=== PATIENT | female | born 1935 | race Caucasian/White ===

== ENCOUNTER 2016-12-07 09:59 | Day surgery (SDC) | payer MEDICARE, OTHER ==
--- NOTE | ~2016-12-07 | EGD ---
EGD REPORT [facility] [address] [place]. [address] NAME: ALEISHA OLIVEIRA : 37 STATUS : REG [facility]#: [id number] AGE: 80 ADM/REG DATE : 12/07/16 MR#: [id number] REPORT SERV DATE: 12/07/16 DICTATED BY: JOSE NEIL DATE: 12/07/16 REPORT STATUS : Draft TRANSCRIBED BY: [employer] DATE: 12/07/16 [facility] Patient Name: Aleisha Oliveira Date of : 1935 Attending MD: JOSE NEIL MD Procedure Date No Time: 12/07/2016 Procedure: Upper GI endoscopy Indications: Dysphagia, Heartburn, Suspected esophageal reflux, Personal history of peptic ulcer disease Referring MD: AFIA WINKLER Medicines: as per anesthesia Complications: No immediate complications. Procedure: After obtaining informed consent, the endoscope was passed under direct vision. Throughout the procedure, the patient's blood pressure, pulse, and oxygen saturations were monitored continuously. The GIF [id number] was introduced through the mouth, and advanced to the third part of duodenum. The upper GI endoscopy was accomplished without difficulty. The patient tolerated the procedure. Findings: The examined esophagus was normal. The scope was withdrawn. Dilation was performed with a Pantoja dilator with no resistance at 44 Fr. A medium-sized hiatus hernia was present. The examined duodenum was normal. Impression: - Normal esophagus. Dilated. - Hiatus hernia. - Normal examined duodenum. Recommendation: - Follow an antireflux regimen. - Continue present medications. Procedure Code(s): --- Professional --- 80567, Esophagogastroduodenoscopy, flexible, transoral; diagnostic, including collection of specimen(s) by brushing or washing, when performed (separate procedure) 70061, Dilation of esophagus, by unguided sound or bougie, single or multiple passes Diagnosis Code(s): --- Professional --- K44.9, Diaphragmatic hernia without obstruction or gangrene R13.10, Dysphagia, unspecified EGD REPORT [address] [place]. [address] NAME: ALEISHA OLIVEIRA : [birth year] STATUS : REG [facility] PAT#: [id number] AGE: 80 ADM/REG DATE : 12/07/16 MR#: [id number] REPORT SERV DATE: 12/07/16 DICTATED BY: JOSE NEIL. DATE: 12/07/16 REPORT STATUS : Draft TRANSCRIBED BY: [employer] DATE: 12/07/16 R12, Heartburn Z87.11, Personal history of peptic ulcer disease CPT copyright 2013 [employer]. All rights reserved. The codes documented in this report are preliminary and upon front maker lockstitch review may be revised to meet current compliance requirements. JOSE NEIL MD 12/07/2016 1:31 PM This report has been signed electronically. Number of Addenda: 0 Note Initiated On: 12/07/2016 1:12 PM Scope Withdrawal Time 0 hours 0 minutes [address] [place], [place] [address] [address]
[~2016-12-07 09:59] MED LIST: ADVAIR100 INH; ALLERGY INJ; ATEN25 PO; CALCIUM PO; CALTRA600D PO; CLARIT10 PO; CRANBERRY1 TAB OR; CRESTOR10 PO; DCN100 PO; ESTRADIOL; EYE DROP1 OP; FISH OIL PO; FISH-EPA1000 MG PO; FLEX PO; FLONASE NAS; FOSAMAX70 MG PO; KAPIDEX30 MG PO; KAPIDEX60 MG PO; LIBRAX PO; LIQUID TEARS OP; LYRICA100 MG PO; MEDS; METHOC500B PO; MURO1285% OPH; NASACORTAQ NAS; NORCO1 TA1 PO; OMNICEF300 PO; PR25 PO; PREDMILDOP OPH; PRILOSEC40 MG PO; PROBIOTIC PO; PROVHFA INH; RANITIDINE300 MG PO; RESTASIS OPH; SALINE EYE DROPS; SALINE EYE DROPS OPH; SINGULAIR1 PO; SYMBICORT 160/41 INH INH; TESS PO; THERGRANM PO; TYLENOL ALLERGY PO; ULTRAM50 PO; V2 PO; VITAMIN D31000 UNIT PO; XYZAL5 MG PO; ZOL100 PO; ZOL50 PO; ZYRTEC ALLGY10 MG PO; [UNRECOGNIZED DRUG - CODE] PO; [UNRECOGNIZED DRUG - OTHER] PO; [UNRECOGNIZED DRUG - OTHER] PO
== END 2016-12-07 23:59 | disposition home or self-care (01) ==
LOC: DMU 09:59
PROVIDERS: Internal Medicine Gastroenterology
PROC: 0DJ08ZZ Inspection of Upper Intestinal Tract, Via Natural or Artificial Opening Endoscopic (ICD-10-PCS; principal; 2016-12-07 11:00)
PROC: 0D750ZZ Dilation of Esophagus, Open Approach (ICD-10-PCS; 2016-12-07 11:00)
DX: K44.9 Diaphragmatic hernia without obstruction or gangrene (principal); K21.9 Gastro-esophageal reflux disease without esophagitis; I10 Essential (primary) hypertension; J45.909 Unspecified asthma, uncomplicated; F17.210 Nicotine dependence, cigarettes, uncomplicated; Z87.11 Personal history of peptic ulcer disease; Z88.2 Allergy status to sulfonamides; Z93.3 Colostomy status; Z98.890 Other specified postprocedural states